=== PATIENT | male | born 1950 ===

== ENCOUNTER → 2017-04-30 | Outpatient (CLI) | payer MEDICARE | END | disposition home or self-care (01) | LOC: GMAB 14:06 | PROVIDERS: ATTEND Family Medicine | DX: R97.20 Elevated prostate specific antigen [PSA] (principal) ==

== ENCOUNTER 2017-05-29 05:50 | Day surgery (SDC) | payer MEDICARE ==
[2017-05-29] MEDS ORDERED: PROPOFOL 200 MG/20 ML VIAL IV ONE (07:00)
[2017-05-29] MEDS ORDERED: LIDOCAINE 1% 10 ML VIAL INJ ONE (07:00)
[2017-05-29] MEDS: LACTATED RINGERS 1,000 ML ONE (07:10)
[2017-05-29 08:53] VITALS: BP 125/77; TEMP 97.1; O2SAT 98
--- NOTE | 2017-05-29 09:00 | OP ---
DATE OF PROCEDURE: 05/29/17 PREOPERATIVE DIAGNOSIS: 1. Colon cancer screen. POSTOPERATIVE DIAGNOSIS: 1. Colon cancer screen. 2. Diverticulosis. PROCEDURE: 1. Colonoscopy. SURGEON: Donavan Garcia MD. ANESTHESIA: MAC by Rafael Neff CRNA. ESTIMATED BLOOD LOSS: None. COMPLICATIONS: None apparent. TECHNIQUE: After informed consent was obtained from the patient, the patient was taken to the Endoscopy Suite and put in the left lateral decubitus position. After adequate IV sedation was obtained, a digital rectal exam was performed which revealed normal sphincter tone, no intraluminal masses, and a smooth, 1+, anodular prostate. The colonoscope was then passed with good visualization all the way through the colon. A single small diverticulum was found in the sigmoid region. The cecum was identified by the presence of ileocecal valve. The bowel prep was good. The scope was then withdrawn slowly over the next 10 minutes and a good look at the entire colonic mucosa was obtained. There was the one diverticulum seen, but no other pathology identified. The scope was removed. The patient tolerated the procedure well. The patient was transported to the outpatient area in good condition. He will followup on a p.r.n. basis. It is recommended that he have a high fiber diet. We will repeat his scope within 10 years. #[id number] [facility]
== END 2017-05-29 08:40 | disposition home or self-care (01) ==
LOC: AMB 05:50
PROVIDERS: ATTEND Family Medicine
DX: Z12.11 Encounter for screening for malignant neoplasm of colon (principal); K57.30 Diverticulosis of large intestine without perforation or abscess without bleeding; I25.10 Atherosclerotic heart disease of native coronary artery without angina pectoris; E78.2 Mixed hyperlipidemia; I10 Essential (primary) hypertension; M54.5 Low back pain; Z87.891 Personal history of nicotine dependence; Z96.653 Presence of artificial knee joint, bilateral; Z79.899 Other long term (current) drug therapy
CPT/HCPCS: 00812; G0121; J3490; J7120

== ENCOUNTER → 2018-05-04 | Outpatient (CLI) | payer MEDICARE | LOC: GMAJ 11:15 | PROVIDERS: ATTEND Family Medicine | DX: Z12.5 Encounter for screening for malignant neoplasm of prostate (principal) ==

== ENCOUNTER → 2018-10-26 | Outpatient (CLI) | payer MEDICARE | LOC: GMAJ 14:57 | PROVIDERS: ATTEND Family Medicine | DX: N40.1 Benign prostatic hyperplasia with lower urinary tract symptoms (principal); J30.89 Other allergic rhinitis ==

== ENCOUNTER → 2019-04-28 | Outpatient (CLI) | payer MEDICARE | LOC: GMAJ 10:35 | PROVIDERS: ATTEND Family Medicine | DX: N40.1 Benign prostatic hyperplasia with lower urinary tract symptoms (principal); E78.2 Mixed hyperlipidemia ==

== ENCOUNTER → 2019-06-17 | Outpatient (CLI) | payer MEDICARE | LOC: GMAJ 14:14 | PROVIDERS: ATTEND Family Medicine | DX: N40.1 Benign prostatic hyperplasia with lower urinary tract symptoms (principal); Z20.820 Contact with and (suspected) exposure to varicella ==

== ENCOUNTER 2019-10-18 | Emergency (ER) | payer MEDICARE ==
--- NOTE | 2019-10-18 09:36 | ED.PDOC ---
History of Present Illness - General Chief Complaint: Neck Injury/Pain Stated Complaint: neck pain/stiffness Time Seen by Provider: 10/18/19 09:33 Source: patient, RN notes reviewed, Vital Signs reviewed Exam Limitations: no limitations - History of Present Illness Initial Comments: Patient is a 69-year-old male who presents with complaints of neck pain. Patient had a heavy box come down and partially landed on his head approximately 1 week ago. Patient had no problems but starting 3 days ago started having neck pain and went to an outside facility for evaluation. At that visit he received a CT scan of his neck which was negative for fracture. Patient was diagnosed with musculoskeletal pain and started on etodolac. Patient has been taking 1 pill of etodolac a day instead of 3 and in the evening is utilizing 2 tablets of ibuprofen 200 mg. Patient weighs approximately 195 pounds. Patient denies any radiation of the pain. The pain is throbbing in nature. It is worse with movement. Patient complains of a stiff neck. Patient denies any numbness or tingling distally. Patient denies any urinary or fecal incontinence/retention. Patient denies any numbness or weakness in any of his extremities. Nothing seems to make the pain better except for an ice pack. It is worse with attempted movement or use of heat pack. Timing/Duration: other - 3 to 4 days. Improving Factors: cold therapy Worsening Factors: movement Associated Symptoms: denies symptoms Allergies/Adverse Reactions: Allergies NO KNOWN ALLERGY Allergy (Verified 05/29/17 07:39) Home Medications: Ambulatory Orders Kristyn-D 12 Hour Allergy 60-120 mg 05/29/17 Flomax 05/29/17 Lipitor 05/29/17 Methylprednisolone [Medrol Dose Marc] 4 mg PO DAILY 6 Days #21 tab 10/18/19 Review of Systems - Review of Systems Constitutional: States: no symptoms reported, see HPI. Denies: chills, fever, malaise, weakness EENTM: States: no symptoms reported. Denies: eye pain, double vision, throat pain, throat swelling Respiratory: States: no symptoms reported. Denies: cough, short of breath, wheezing Cardiology: States: no symptoms reported. Denies: chest pain, palpitations, syncope Gastrointestinal/Abdominal: States: no symptoms reported. Denies: abdominal pain, diarrhea, nausea, vomiting Genitourinary: Denies: no symptoms reported, discharge, dysuria Musculoskeletal: States: see HPI, neck pain Skin: States: no symptoms reported. Denies: change in color, rash Neurological: States: see HPI, anxiety. Denies: headache, numbness, paresthesia, tingling, tremors, weakness Endocrine: States: no symptoms reported Hematologic/Lymphatic: States: no symptoms reported All other Systems: Reviewed and Negative, No Change from Baseline Past Medical History (General) - Patient Medical History Hx Stroke: No Hx Cardiac Disorders: No Hx Congestive Heart Failure: No Hx Hypertension: No Hx Diabetes: No Hx MRSA: No Surgical History: no surgical history - Vaccination History Hx Influenza Vaccination: Yes - Social History Hx Alcohol Use: Yes - Activities of Daily Living Hospice Agency (if applicable):: None - Female History Patient is a Female of Child Bearing Age (10 -59 yrs old): No - Triage Comment ED Triage Comment: pt voices neck pain/stiffness for the past couple days. pt voices he had a full workup at [facility] evening. Family Medical History - Family History Mother Family History: Unknown Physical Exam - Physical Exam General Appearance: Alert, Anxious, Well Developed, Well Groomed, Well Hydrated, Well Nourished Eye Exam: bilateral normal Ears, Nose, Throat: hearing grossly normal, normal ENT inspection, normal pharynx Neck: other - Patient with no midline tenderness to palpation. There are no step-offs or crepitus. He has some mild muscle spasm para cervical at the attachment of the cervical muscles on the left at the base of the skull. 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 Patient denies any muscle spasm. Patient requests a Medrol Dosepak for further treatment. I have instructed patient on the proper utilization of his medications. Patient is to use either etodolac or ibuprofen and in appropriate dosages. Patient voices understanding and agreement with the plan of care. Plan on discharge home with a Medrol Dosepak. Patient to follow-up with his PCP. Ben Erickson M.D. #[id number] Departure - Departure Clinical Impression: Acute cervical myofascial strain Qualifiers: Encounter type: initial encounter Qualified Code(s): S16.1XXA - Strain of muscle, fascia and tendon at neck level, initial encounter Time of Disposition: 09:40 Disposition: Discharge to Home or Self Care Condition: Excellent Departure Forms: ED Discharge - Pt. Copy, Patient Portal Self Enrollment Instructions: DI for Neck Pain, DI for Neck Sprain Diet: resume usual diet Activity: increase activity as tolerated Referrals: Donavan Garcia MD [Primary Care Provider] - 1-5 Days Prescriptions: Methylprednisolone [Medrol Dose Marc] 4 mg PO DAILY 6 Days #21 tab Home Medications: Ambulatory Orders Kristyn-D 12 Hour Allergy 60-120 mg 05/29/17 Flomax 05/29/17 Lipitor 05/29/17 Methylprednisolone [Medrol Dose Marc] 4 mg PO DAILY 6 Days #21 tab 10/18/19
== END 2019-10-18 09:45 | disposition home or self-care (01) ==

== ENCOUNTER → 2020-01-10 | Outpatient (CLI) | payer MEDICARE ==
--- NOTE | 2020-01-12 13:06 | MRI ---
PROVIDED CLINICAL HISTORY/REASON FOR EXAM: ELEVATED PSA PROSTATE NODULE TECHNIQUE: Multisequence, multiplanar MRI images of the pelvis with and without contrast. COMPARISON: None FINDINGS: Evaluation limited by technique, magnetic field strength and lack of diffusion-weighted images. The prostate gland measures 3.7 x 4.7 x 3.1 cm. This results in a prostate volume of 28 cc. The patient's most recent PSA value measures 4.15 ng/mL. This results in a PSA density of 0.15 ng/mL/cc. Peripheral Zone: No index lesion. Transition Zone: No index lesion. Capsule: Intact. No extra-prostatic extension. Neurovascular Bundles: Unremarkable. Seminal Vesicles: Normal. Lymph Nodes: Small left joyce-prostatic lymph node measuring 6 mm. Bones: No focal marrow signal abnormality. Other: No significant findings. IMPRESSION: Limited examination with no index lesion identified. Electronically signed by: Denton Connelly MD 01/12/2020 1:04 PM CDT
== END ==
LOC: MRI 11:00
PROVIDERS: ATTEND Urology
DX: Z01.812 Encounter for preprocedural laboratory examination (principal); R97.20 Elevated prostate specific antigen [PSA]; N40.2 Nodular prostate without lower urinary tract symptoms; D40.0 Neoplasm of uncertain behavior of prostate

== ENCOUNTER → 2020-01-19 | Outpatient (CLI) | payer MEDICARE | LOC: GMAJ 14:54 | PROVIDERS: ATTEND Family Medicine | DX: R97.20 Elevated prostate specific antigen [PSA] (principal) ==